=== PATIENT | male | born 1975 | race Two or more races ===

== ENCOUNTER 2016-12-26 13:15 | Emergency (ER) | payer OTHER ==
[~2016-12-26] VITALS: Ht 177.8 cm; Wt 81.6 kg
[~2016-12-26 13:15] MED LIST: BACTRIM DS TAB1 EAC1 ORAL; CLINDAMYCIN HC300 MG ORAL; KEFLEX500 MG ORAL; MUCINEX1200 MG PO; NKM; OCUFEN2.5 ML OP; OCUFLOX5 ML RIGHT EYE; PROMETHAZINE-C118 M1 ORAL; ZITHROMAX250 MG ORAL
[2016-12-26] MEDS ORDERED: Norco 7.5mg/325mg tab ORAL ONE (13:30)
--- NOTE | 2016-12-26 13:30 | Emergency Room Report ---
History of Present Illness General Chief Complaint: Lower Back Pain or Injury Source: EMS (BALA MCLEAN P.A.) Present Illness HPI Patient is a 41-year-old male who denies any medical history presenting for right hip pain which began yesterday after falling onto the corner of a cement block. The patient states that the pain has worsened today and is now described as a 9/10 dull ache localized to the right posterior hip. The patient denies prior injury to this area. The patient denies any numbness or tingling of the extremities. Pt denies N, V, F, chills, dysuria, incontinence, abd pain (BALA MCLEAN P.A.) Allergies: Coded Allergies: No Known Allergies (Unverified , 12/24/14) Patient History Past Medical History: see triage record Pertinent Family History: none Reviewed Nursing Documentation: PMH: Agreed, PSxH: Agreed (BALA MCLEAN.ABalaji) Nursing Documentation-PMH Past Medical History: No Stated History Hx Hypertension: Yes (BALA MCLEAN P.ABalaji) Review of Systems All Other Systems: negative except mentioned in HPI (BALA MCLEAN P.A.) Physical Exam Vital Signs Date Time Temp Pulse Resp B/P Pulse Ox O2 Delivery O2 Flow Rate FiO2 12/26/16 13:15 97.9 83 16 107/65 99 Room Air Sp02 EP Interpretation: reviewed, normal General Appearance: no apparent distress, alert, GCS 15, non-toxic Head: normocephalic, atraumatic Eyes: bilateral eye PERRL, bilateral eye normal inspection ENT: hearing grossly normal, normal pharynx, no angioedema, normal voice Neck: full range of motion, supple/symm/no masses Musculoskeletal: back normal, normal range of motion, no calf tenderness, pelvis stable, tender - TTP over R posterior hip Neurologic: alert, oriented x3, responsive, motor strength/tone normal, sensory intact, speech normal Psychiatric: judgement/insight normal, memory normal, mood/affect normal, no suicidal/homicidal ideation Skin: normal color, no rash, warm/dry, well hydrated Lymphatic: no adenopathy (BALA MCLEAN P.A.) Medical Decision Making PA Attestation Dr. Rodriguez is my supervising physician. Patient management was discussed with my supervising physician (BALA MCLEAN) Diagnostic Impression: Primary Impression: Contusion of hip, right ER Course Patient is a 41-year-old male who denies any medical history presenting for right hip pain Ddx considered include but not limited to sprain/strain, fracture, contusion PE: vitals WNL. NAD Back: No midline tenderness. No step-offs. No obvious deformity. There is tenderness to palpation over the right paraspinous muscles and right posterior hip. No ecchymosis. No edema. X-ray of the lumbar spine and right hip are unremarkable. The patient was given [place] for pain with good relief. The patient will be discharged home with a prescription for Motrin. ER precautions are given (BALA MCLEAN) ER Course Agree with PA-obtained, HPI, PE, Assessment/PLAN and their interpretation of imaging and rhythm strip. (EDGAR RODRIGUEZ M.D.) Other X-Ray Diagnostic Results Other X-Ray Diagnostic Results #1: X-Ray Ordered: L spine Date: Dec 26, 2016 EP Interpretation: Yes Findings: no fractures, no dislocation, no soft tissue swelling Number of Views: 3 PA Scribe Text I am acting as scribe for my supervising physician. My supervising physician's interpretation of the L spine xrays are there are no fractures, dislocations or soft tissue swelling. Other X-Ray Diagnostic Results #2: X-Ray Ordered: R hip Date: Dec 26, 2016 EP Interpretation: Yes Findings: no fractures, no dislocation, no soft tissue swelling Number of Views: 2 PA Scribe Text I am acting as scribe for my supervising physician. My supervising physician's interpretation of the R hip xrays are there are no fractures, dislocations or soft tissue swelling. (BALA MCLEAN) Last Vital Signs Date Time Temp Pulse Resp B/P Pulse Ox O2 Delivery O2 Flow Rate FiO2 12/26/16 13:15 97.9 83 16 107/65 99 Room Air Status: improved (BALA MCLEANABalaji) Disposition: HOME, SELF-CARE Condition: Improved Scripts Ibuprofen* (MOTRIN*) 600 Mg Tablet 600 MG ORAL Q8H Y for For Pain, #30 TAB 0 Refills Prov: BALA MCLEAN 12/26/16 BALA MCLEAN Dec 26, 2016 13:30 EDGAR RODRIGUEZ M.D. Jan 02, 2017 09:57
--- NOTE | 2016-12-26 14:15 | Diagnostic Imaging Report ---
Indications: hip pain Findings: Two views of the right hip were obtained. No acute fracture is demonstrated. Alignment of the hip is within normal limits. Soft tissues are unremarkable. Impression: Negative examination of the hip.
--- NOTE | 2016-12-26 14:30 | Diagnostic Imaging Report ---
Indication: Back pain Comparison: None Findings: 3 views of the lumbar spine were obtained. Mild narrowing of intervertebral disks and associated endplate and facet osteophytes are present. No malalignment identified. No acute fracture definitely seen. Impression: Mild spondylosis. No acute injury appreciated.
[2016-12-26] MEDS ORDERED: IBUPROFEN600 MG ORAL (14:32)
[2016-12-26 15:06] VITALS: BP 120/73
== END 2016-12-26 15:10 | disposition home or self-care (01) ==
LOC: EDBD 13:15 → EMR 13:48
DX: S70.01XA Contusion of right hip, initial encounter (principal); W19.XXXA Unspecified fall, initial encounter; Y92.9 Unspecified place or not applicable; I10 Essential (primary) hypertension
CPT/HCPCS: 72020; 99284

== ENCOUNTER 2017-03-23 20:08 | Emergency (ER) | payer OTHER ==
[~2017-03-23] VITALS: Ht 162.6 cm; Wt 63.5 kg
[~2017-03-23 20:08] MED LIST changes: +IBUPROFEN600 MG ORAL
[2017-03-23] MEDS ORDERED: Norco 10mg/325mg tab ORAL ONE (20:30)
[2017-03-23] MEDS ORDERED: Ketorolac 60mg Inj IM ONE (20:30)
[2017-03-23 21:34] VITALS: BP 136/82
[2017-03-23 22:12] LABS: EOSINOPHILS % (AUTO) 2.8 % (0.0-3.0); LYMPHOCYTES % (AUTO) 44.6 % (20.0-45.0); MEAN CORPUSCULAR HEMOGLOBIN 34.1 PG (27.0-31.0); MEAN CORPUSCULAR HGB CONC 35.6 G/DL (32.0-36.0); MEAN CORPUSCULAR VOLUME 96 FL (80-99); MEAN PLATELET VOLUME 7.2 FL (6.5-10.1); MONOCYTES % (AUTO) 5.3 % (1.0-10.0); NEUTROPHILS % (AUTO) 45.3 % (45.0-75.0); PLATELET COUNT 243 K/UL (150-450); RED BLOOD COUNT 4.48 M/UL (4.70-6.10); RED CELL DISTRIBUTION WIDTH 11.8 % (11.6-14.8)
[2017-03-23] MEDS ORDERED: ROBAXIN-750750 MG PO (22:16)
[2017-03-23] MEDS ORDERED: NORCO 5-325 TA1 EACH ORAL (22:16)
[2017-03-23] MEDS ORDERED: IBUPROFEN600 MG ORAL (22:16)
[2017-03-23 22:29] LABS: ALCOHOL < 10 mg/dL; ANION GAP 14 (5-15); CALCIUM 9.2 mg/dL (8.6-10.2); CARBON DIOXIDE 26 mEQ/L (20-30); CHLORIDE 100 mEQ/L (98-107); CREATININE 0.9 mg/dL (0.7-1.2); GLOMERULAR FILTRATION RATE > 60 mL/min (>60); HEMOLYSIS 98; POTASSIUM 4.3 mEQ/L (3.4-4.9); SODIUM 140 mEQ/L (135-145)
[2017-03-23 22:45] VITALS: BP 124/78
[2017-03-23 22:50] VITALS: BP 124/78
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
== END 2017-03-23 22:50 | disposition home or self-care (01) ==
LOC: EDBD 20:08 → EMR 20:37
DX: S32.019A Unspecified fracture of first lumbar vertebra, initial encounter for closed fracture (principal); S32.029A Unspecified fracture of second lumbar vertebra, initial encounter for closed fracture; S32.039A Unspecified fracture of third lumbar vertebra, initial encounter for closed fracture; M51.36 Other intervertebral disc degeneration, lumbar region; I10 Essential (primary) hypertension; R91.1 Solitary pulmonary nodule; M47.9 Spondylosis, unspecified; R07.9 Chest pain, unspecified; M50.30 Other cervical disc degeneration, unspecified cervical region; S00.03XA Contusion of scalp, initial encounter; V43.52XA Car driver injured in collision with other type car in traffic accident, initial encounter; Y93.9 Activity, unspecified; Y92.410 Unspecified street and highway as the place of occurrence of the external cause
CPT/HCPCS: 36415; 70450; 71250; 72125; 72128; 72131; 80048; 80329; 85025; 96372; 99284

== ENCOUNTER 2019-08-04 08:13 | Emergency (ER) | payer OTHER ==
[~2019-08-04] VITALS: Ht 172.7 cm; Wt 81.6 kg
[~2019-08-04 08:13] MED LIST changes: +NORCO 5-325 TA1 EACH ORAL; +ROBAXIN-750750 MG PO
[2019-08-04] MEDS ORDERED: NKM (08:20)
[2019-08-04] MEDS ORDERED: DiphenhydrAMINE 50mg/ml Inj IVP ONE (08:30)
[2019-08-04] MEDS ORDERED: Morphine Sulfate 4mg/ml Inj (IV USE ONLY) IVP ONE (08:30)
[2019-08-04] MEDS ORDERED: Metoclopramide 10mg/2ml Inj IVP ONE (08:30)
--- NOTE | 2019-08-04 08:30 | Emergency Room Report ---
History of Present Illness General Chief Complaint: Abdominal Pain Source: Patient Present Illness HPI 44-year-old male no past medical history no surgical history presents with right upper quadrant pain that started at 5 AM, patient thinks he ate bad pork, no aggravating alleviating factors, he has had sharp pain moderate severity constant, with acute nausea vomiting no fever no chills no chest pain no shortness of breath, no diarrhea patient presents for evaluation Allergies: Coded Allergies: No Known Allergies (Unverified , 12/24/14) Patient History Past Medical History: see triage record Social History: Reports: smoking Reviewed Nursing Documentation: PMH: Agreed; PSxH: Agreed Nursing Documentation-PMH Past Medical History: No Stated History Hx Hypertension: Yes Review of Systems All Other Systems: negative except mentioned in HPI Physical Exam Vital Signs Date Time Temp Pulse Resp B/P (MAP) Pulse Ox O2 Delivery O2 Flow Rate FiO2 08/04/19 08:15 98.1 62 18 110/67 (81) 99 Room Air Sp02 EP Interpretation: reviewed, normal General Appearance: well appearing, no apparent distress, alert Head: normocephalic, atraumatic Eyes: bilateral eye PERRL, bilateral eye EOMI ENT: uvula midline, moist mucus membranes Neck: supple, thyroid normal, supple/symm/no masses Respiratory: lungs clear, no respiratory distress, no retraction, no accessory muscle use Cardiovascular #1: normal peripheral pulses, regular rate, rhythm, no edema, no gallop, no murmur Gastrointestinal: soft, tenderness - Positive Richardson's, [id number] ultrasound shows a gallstone, tenderness to palpation right upper quadrant Musculoskeletal: normal inspection Neurologic: alert, oriented x3 Psychiatric: mood/affect normal Skin: no rash, warm/dry Medical Decision Making Diagnostic Impression: Primary Impression: Biliary colic ER Course 44-year-old male presents with right upper quadrant pain, positive Richardson's possible cholecystitis versus cholelithiasis versus ascending cholangitis Pain medication given, labs ordered, ultrasound shows a gallstone Formal ultrasound shows no gallbladder wall thickening, no impacted stone, no pericholecystic fluid negative Richardson's Reevaluation at 10:05 AM, pain is well controlled, counseled patient that he is to follow-up with a general surgeon disposition home with return precautions Laboratory Tests Test 08/04/19 08:35 08/04/19 09:55 White Blood Count 8.7 K/UL (4.8-10.8) Red Blood Count 4.41 M/UL (4.70-6.10) L Hemoglobin 14.5 G/DL (14.2-18.0) Hematocrit 41.7 % (42.0-52.0) L Mean Corpuscular Volume 94 FL (80-99) Mean Corpuscular Hemoglobin 32.9 PG (27.0-31.0) H Mean Corpuscular Hemoglobin Concent 34.8 G/DL (32.0-36.0) Red Cell Distribution Width 11.3 % (11.6-14.8) L Platelet Count 281 K/UL (150-450) Mean Platelet Volume 6.8 FL (6.5-10.1) Neutrophils (%) (Auto) 51.9 % (45.0-75.0) Lymphocytes (%) (Auto) 38.9 % (20.0-45.0) Monocytes (%) (Auto) 6.1 % (1.0-10.0) Eosinophils (%) (Auto) 1.9 % (0.0-3.0) Basophils (%) (Auto) 1.2 % (0.0-2.0) Prothrombin Time 9.3 SEC (9.30-11.50) Prothrombin Time INR 0.9 (0.9-1.1) PTT 27 SEC (23-33) Sodium Level 140 MMOL/L (136-145) Potassium Level 3.1 MMOL/L (3.5-5.1) L Chloride Level 103 MMOL/L (98-107) Carbon Dioxide Level 26 MMOL/L (21-32) Anion Gap 11 mmol/L (5-15) Blood Urea Nitrogen 14 mg/dL (7-18) Creatinine 1.0 MG/DL (0.55-1.30) Estimate Glomerular Filtration Rate > 60 mL/min (>60) Glucose Level 152 MG/DL (74-106) H Calcium Level 9.2 MG/DL (8.5-10.1) Total Bilirubin 0.2 MG/DL (0.2-1.0) Aspartate Amino Transferase (AST) 23 U/L (15-37) Alanine Aminotransferase (ALT) 42 U/L (12-78) Alkaline Phosphatase 66 U/L (46-116) Troponin I 0.000 ng/mL (0.000-0.056) Total Protein 7.2 G/DL (6.4-8.2) Albumin 4.1 G/DL (3.4-5.0) Globulin 3.1 g/dL Albumin/Globulin Ratio 1.3 (1.0-2.7) Lipase 216 U/L (73-393) Urine Opiates Screen Pending Urine Barbiturates Screen Pending Phencyclidine (PCP) Screen Pending Urine Amphetamines Screen Pending Urine Benzodiazepines Screen Pending Urine Cocaine Screen Pending Urine Marijuana (THC) Screen Pending EKG Diagnostic Results EKG Time: 08:40 EP Interpretation: sinus bradycardia, rate 55, QTc 432, no acute ST elevations , normal axis Rhythm Strip Diag. Results Rhythm Strip Time: 08:31 EP Interpretation: yes Rate: 61 Rhythm: NSR, no PVC's, no ectopy Chest X-Ray Diagnostic Results Chest X-Ray Diagnostic Results : Chest X-Ray Ordered: Yes # of Views/Limited/Complete: 1 View Indication: Other - preop EP Interpretation: Yes Interpretation: no consolidation, no effusion, no pneumothorax, no acute cardiopulmonary disease Impression: No acute disease Electronically Signed by: Primitivo Monroe MD CT/MRI/US Diagnostic Results CT/MRI/US Diagnostic Results : Impression US NEGATIVE FOR CHOLECYSTITIS Last Vital Signs Date Time Temp Pulse Resp B/P (MAP) Pulse Ox O2 Delivery O2 Flow Rate FiO2 08/04/19 08:15 98.1 62 18 110/67 (81) 99 Room Air Disposition: HOME, SELF-CARE Condition: Stable Scripts Naproxen* (NAPROSYN*) 250 Mg Tablet 250 MG ORAL BID PRN for For Pain, #20 TAB 0 Refills Prov: Primitivo Monroe MD 08/04/19 [facility] Patient Instructions: Biliary Colic, Cholelithiasis, [id number] Additional Instructions: The patient was provided with discharge instructions, notified to follow-up with a primary care doctor and or specialist in the next 24-48 hours, and to return to the ED if they have worsening of their symptoms. Please note that this report is being documented using [employer] technology. This can lead to erroneous entry secondary to incorrect interpretation by the dictating instrument. PLEASE FOLLOW-UP WITH GENERAL SURGEON FOR POSSIBLE REMOVAL OF GALLBLADDER Primitivo Monroe MD Aug 04, 2019 08:30
[2019-08-04 08:47] VITALS: BP 129/77
--- NOTE | 2019-08-04 08:49 | NUR ---
ED Nurse Note: Patient brought to bed 4 by triage nurse ambulated. CO upper abdominal pain - no radistaion states the pain uis accrioss the upper abdomen- reports he ate pork last night. Pain started at 6am - 10-10 intensity - worse on movement better when still but still present. Also vomitted x2 states he dioes not know what the vomit looked like. EKG done and USS ordered.
[2019-08-04 09:08] LABS: ANION GAP 11 mmol/L (5-15); BLOOD UREA NITROGEN 14 mg/dL (7-18); CALCIUM 9.2 MG/DL (8.5-10.1); CARBON DIOXIDE 26 MMOL/L (21-32); CHLORIDE 103 MMOL/L (98-107); POTASSIUM 3.1 MMOL/L (3.5-5.1); SODIUM 140 MMOL/L (136-145)
--- NOTE | 2019-08-04 09:10 | NUR ---
ED Nurse Note: md aware of heartrate 44-50 prior to meds given. pt ok to continue with meds
[2019-08-04 09:12] LABS: ALANINE AMINOTRANSFERASE 42 U/L (12-78); ALBUMIN 4.1 G/DL (3.4-5.0); ALBUMIN/GLOBULIN RATIO 1.3 (1.0-2.7); ALKALINE PHOSPHATASE 66 U/L (46-116); ASPARTATE AMINO TRANSFERASE 23 U/L (15-37); BILIRUBIN,TOTAL 0.2 MG/DL (0.2-1.0)
[2019-08-04 09:18] LABS: BASOPHILS % (AUTO) 1.2 % (0.0-2.0); EOSINOPHILS % (AUTO) 1.9 % (0.0-3.0); HEMATOCRIT 41.7 % (42.0-52.0); HEMOGLOBIN 14.5 G/DL (14.2-18.0); LYMPHOCYTES % (AUTO) 38.9 % (20.0-45.0); MEAN CORPUSCULAR VOLUME 94 FL (80-99); MONOCYTES % (AUTO) 6.1 % (1.0-10.0); NEUTROPHILS % (AUTO) 51.9 % (45.0-75.0); PLATELET COUNT 281 K/UL (150-450); RED BLOOD COUNT 4.41 M/UL (4.70-6.10); RED CELL DISTRIBUTION WIDTH 11.3 % (11.6-14.8); WHITE BLOOD COUNT 8.7 K/UL (4.8-10.8)
[2019-08-04 09:20] VITALS: BP 135/76
[2019-08-04 09:24] LABS: INR 0.9 (0.9-1.1)
[2019-08-04 09:44] VITALS: BP 121/73
--- NOTE | 2019-08-04 09:47 | NUR ---
ED Nurse Note: Medications given as prescribed for symptom management. Patient currently sleeping following USS of abdomen and Xray. Pain score 2 at present. Patient wearing hospital goen. Awaiting urine sample for diocumentation of urine appearance and C&S. IV fluids continuing.
--- NOTE | 2019-08-04 10:04 | NUR ---
ED Nurse Note: Patients girlfrined now in attendance. IV infusion continued.
[2019-08-04 10:05] VITALS: BP 111/68
[2019-08-04] MEDS ORDERED: NAPROXEN250 MG ORAL (10:07)
--- NOTE | 2019-08-04 10:16 | NUR ---
ED Nurse Note: happy for patient to be discharged. aware of heart rate. IV fluid infusion to comlete prior to discharge. Patient states he is happy to be discharged. Copy of blood results given to patient printed by PRIYA Nuñez.
[2019-08-04 11:00] VITALS: BP 115/70
--- NOTE | 2019-08-04 11:02 | Diagnostic Imaging Report ---
Indication: Chest pain Technique: One view of the chest Comparison: none Findings: Lungs and pleural spaces are clear. Heart size is normal Impression: No acute process
--- NOTE | 2019-08-04 11:11 | NUR ---
ER DISCHARGE NOTE: Patient is cleared to be discharged per ERMD, pt is aox4, on room air, with stable vital signs. pt was given dc and prescription instructions, pt was able to verbalize understanding, pt id band and iv site removed without complications. pt is able to ambulate with steady gait. pt took all belongings. Patient will be talen home by his girlfriend. Patient advised to rest for the rest of the day and to avoid alcohol and using machineray due to medications given and side effects of drowsiness. Patient not driving the car zoe - will be dricven by girlfriend. Patient is aware to follow up with general surgery - medications given and discharge paperwork. Pain score 0 at time of discharge.
--- NOTE | 2019-08-04 14:48 | Diagnostic Imaging Report ---
Indication: Abdominal pain Technique: Gomez-scale and duplex images of the upper abdomen were obtained Comparison: none Findings: Gallbladder demonstrates gallstones. No gallbladder wall thickening or pericholecystic fluid. Sonographic Richardson's sign is negative. Common bile duct measures 4 mm in diameter. No intrahepatic biliary ductal dilatation. Liver is enlarged, demonstrates normal echogenicity, no focal abnormality. Portal vein and hepatic veins are patent. Pancreas is incompletely visualized due to overlying bowel gas, visualized portions are unremarkable. Spleen is unremarkable. Left kidney measures 12.3 cm in length. Right kidney measures 11.4 cm length. Both kidneys demonstrate normal echogenicity. There is no hydronephrosis. No focal abnormality . Non-aneurysmal abdominal aorta . Impression: Cholelithiasis. Negative for dilated bile ducts Note incomplete visualization of the pancreas and abdominal aorta
--- NOTE | 2019-08-07 15:29 | Cardiology Report ---
APPROVED REPORT EKG Measurement Heart [id number] Sinus bradycardia Otherwise normal ECG
== END 2019-08-04 11:00 | disposition home or self-care (01) ==
LOC: EMR 08:28 → CANBEDREQ 11:17
DX: K80.50 Calculus of bile duct without cholangitis or cholecystitis without obstruction (principal); F17.200 Nicotine dependence, unspecified, uncomplicated; I10 Essential (primary) hypertension; R07.9 Chest pain, unspecified
CPT/HCPCS: 36415; 71045; 76700; 80053; 82962; 83690; 84484; 85025; 85610; 85730; 86850; 86900; 86901; 93005; 96361; 96374; 96375; 99284; J1200; J2270; J2765; S0028

== ENCOUNTER 2019-10-14 18:55 | Emergency (ER) | payer OTHER ==
[~2019-10-14] VITALS: Ht 172.7 cm; Wt 77.1 kg
[~2019-10-14 18:55] MED LIST changes: +NAPROXEN250 MG ORAL
[2019-10-14 19:10] VITALS: BP 125/80
--- NOTE | 2019-10-14 19:10 | NUR ---
ER Nurse Note: Pt walked in c/o abscess on LT FA for one week. Pt stated was working on his car and noticed a spider bite. Pt prolonged a dr visit; pt stated he noticed white puss, redness, and pain. ER PA at bedside, will continue to shaye.
[2019-10-14] MEDS ORDERED: Lidocaine 1% 10mg/ml/EPI 0.01mg/ml 20ml INJ ONE (19:15)
[2019-10-14] MEDS ORDERED: Tetanus/Diptheria/Pertussis IM ONE (19:15)
[2019-10-14] MEDS ORDERED: Ketorolac 30mg Inj IM ONE (19:15)
[2019-10-14] MEDS ORDERED: Bactrim-DS 1 tab ORAL ONE (19:15)
[2019-10-14] MEDS ORDERED: Cephalexin 500mg cap ORAL ONE (19:15)
--- NOTE | 2019-10-14 19:37 | Emergency Room Report ---
History of Present Illness General Chief Complaint: Skin Rash/Abscess Source: Patient Present Illness HPI 44-year-old male male with no significant past medical history here complaining of an abscess on the left forearm x1 week. 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 He tried to drain the abscess himself when he realized that has been getting more painful however denies fever and chills. Rating the pain 7 out of 10 without radiation. Has full range of motion of the affected area. Denies tingling and numbness. Is not up-to-date with tetanus shot. Denies history of diabetes and other medical condition. denies palpitation, abdominal pain, nausea vomiting and other associated symptoms. Allergies: Coded Allergies: No Known Allergies (Unverified , 12/24/14) Patient History Past Medical History: see triage record Past Surgical History: unable to obtain Pertinent Family History: none Immunizations: other - Tdap given today Reviewed Nursing Documentation: PMH: Agreed; PSxH: Agreed Nursing Documentation-PMH Past Medical History: No History, Except For Hx Hypertension: Yes Review of Systems All Other Systems: negative except mentioned in HPI Physical Exam Vital Signs Date Time Temp Pulse Resp B/P (MAP) Pulse Ox O2 Delivery O2 Flow Rate FiO2 10/14/19 18:58 98.4 76 18 125/80 (95) 97 Room Air Sp02 EP Interpretation: reviewed, normal General Appearance: no apparent distress, alert, GCS 15, non-toxic Head: normocephalic, atraumatic Eyes: bilateral eye normal inspection, bilateral eye PERRL ENT: hearing grossly normal, normal pharynx, no angioedema, normal voice Neck: full range of motion, supple/symm/no masses Respiratory: chest non-tender, lungs clear, normal breath sounds, no wheezing, speaking full sentences Cardiovascular #1: regular rate, rhythm, no edema, no murmur, normal capillary refill Gastrointestinal: non tender, soft Rectal: deferred Genitourinary: no CVA tenderness Musculoskeletal: back normal, digits/nails normal, gait/station normal, normal range of motion, non-tender Neurologic: alert, oriented x3, responsive, motor strength/tone normal, sensory intact, speech normal Psychiatric: judgement/insight normal, memory normal, mood/affect normal, no suicidal/homicidal ideation Skin: other - abscess draining left forearm Lymphatic: normal inspection Procedures Incision and Drainage Incision and Drainage : Consent: Verbal Site: left forearm Blade Size: 11 I & D Procedure: betadine prep Wound Location: upper extremity - left forearm Wound's Depth, Shape: superficial Wound Length (cm): 1 Wound Explored: contaminated Anesthesia: Lidocaine w/ Epi Volume Anesthetic (ccs): 7 Splint Applied?: No Sling Applied?: No Patient Tolerated: Well Complications: None Medical Decision Making PA Attestation All diagnoses and treatment plans were reviewed and discussed with my supervising physician Dr. Johnson Diagnostic Impression: Primary Impression: Abscess of forearm, left ER Course 44-year-old male male with no significant past medical history here complaining of an abscess on the left forearm x1 week. 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 He tried to drain the abscess himself when he realized that has been getting more painful however denies fever and chills. Rating the pain 7 out of 10 without radiation. Has full range of motion of the affected area. Denies tingling and numbness. Is not up-to-date with tetanus shot. Denies history of diabetes and other medical condition. denies palpitation, abdominal pain, nausea vomiting and other associated symptoms. Ddx considered but are not limited to : Cellulitis, osteomyelitis, superficial infection, abscess Vital signs: are WNL, pt. is afebrile H&PE are most consistent with: Abscess left forearm ORDERS: Bactrim DS, Keflex, ibuprofen 800 ED INTERVENTIONS: Tdap, Toradol, Bactrim, Keflex, wound clean and dress, incision and drainage DISCHARGE: At this time pt. is stable for d/c to home. Will provide printed patient care instructions, and any necessary prescriptions. Care plan and follow up instructions have been discussed with the patient prior to discharge. At this time the abscess appears to be draining and a minimal amount of pus in his left with small erythema around the abscess does not look deep and does not require any imaging to rule out osteomyelitis. Patient is afebrile and sitting comfortably. Patient to have a wound check at [facility] or with primary care physician in 2 days. If worsening symptoms return to emergency room sooner. Last Vital Signs Date Time Temp Pulse Resp B/P (MAP) Pulse Ox O2 Delivery O2 Flow Rate FiO2 10/14/19 18:58 98.4 76 18 125/80 (95) 97 Room Air Disposition: HOME, SELF-CARE Condition: Stable Scripts Ibuprofen (Ibu) 800 Mg Tablet 800 MG PO TID, #30 TAB Prov: Trey Chowdhury 10/14/19 Trimethoprim/Sulfamethoxazole 160/800* (BACTRIM DS TABLET*) 1 Each Tablet 1 TAB ORAL TWICE A DAY for 7 Days, #14 TAB Prov: Trey Chowdhury 10/14/19 Cephalexin* (KEFLEX*) 500 Mg Capsule 500 MG ORAL EVERY 6 HOURS for 7 Days, #28 CAP Prov: Trey Chowdhury 10/14/19 Patient Instructions: Abscess Additional Instructions: Take medication as been prescribed, if fever and chills return to emergency room , you need to have a wound check in 2 days he can come back to [facility] or follow-up with primary care physician. If worsening symptoms return to emergency room sooner. Trey Chowdhury Oct 14, 2019 19:37
[2019-10-14] MEDS ORDERED: BACTRIM DS TAB1 EAC1 ORAL (19:39)
[2019-10-14] MEDS ORDERED: IBU800 MG PO (19:39)
[2019-10-14] MEDS ORDERED: CEPHALEXIN500 MG ORAL (19:39)
--- NOTE | 2019-10-14 19:40 | NUR ---
ER Nurse Note: I&D done by ER PA. Dressing applied by precision optics technician. Pt tolerated well.
[2019-10-14 20:10] VITALS: BP 125/80
--- NOTE | 2019-10-14 20:10 | NUR ---
ED Nurse Note: Pt cleared by health care Provider for discharge. DC instructions/prescription was given and explained to pt and verbalized understanding of teachings. All medical deviecs such as ID band removed. Pt is AAO x4, ambulatory and left with all personal belongings.
== END 2019-10-14 20:10 | disposition home or self-care (01) ==
LOC: EMR 19:53
DX: L02.414 Cutaneous abscess of left upper limb (principal); I10 Essential (primary) hypertension; Z23 Encounter for immunization
CPT/HCPCS: 10060; 90471; 90715; 96372; J1885; Z7502; 99283

== ENCOUNTER 2020-08-16 20:04 | Emergency (ER) | payer OTHER ==
[~2020-08-16] VITALS: Ht 172.7 cm; Wt 77.1 kg
[~2020-08-16 20:04] MED LIST changes: +CEPHALEXIN500 MG ORAL; +IBU800 MG PO
[2020-08-16] MEDS ORDERED: BACTRIM DS TAB1 EAC1 ORAL (20:37)
[2020-08-16] MEDS ORDERED: AUGMENTIN 875-1 EAC1 ORAL (20:37)
[2020-08-16 20:45] VITALS: BP 121/80
--- NOTE | 2020-08-17 22:34 | Emergency Room Report ---
History of Present Illness General Chief Complaint: Skin Rash/Abscess Source: Patient Present Illness HPI Patient is a 45-year-old male presents for increased left-sided neck pain. Allergies: Coded Allergies: No Known Allergies (Unverified , 12/24/14) COVID-19 Screening Contact w/high risk pt: No Experienced COVID-19 symptoms?: No COVID-19 Testing performed TILE TRIMMER: No Nursing Documentation-PMH Past Medical History: No Stated History Hx Hypertension: Yes Physical Exam Vital Signs Date Time Temp Pulse Resp B/P (MAP) Pulse Ox O2 Delivery O2 Flow Rate FiO2 08/16/20 20:09 99.7 97 19 119/82 (94) 96 Room Air Medical Decision Making Diagnostic Impression: Primary Impression: Folliculitis Last Vital Signs Date Time Temp Pulse Resp B/P (MAP) Pulse Ox O2 Delivery O2 Flow Rate FiO2 08/16/20 20:45 99.7 72 20 121/80 98 Room Air Disposition: HOME, SELF-CARE Condition: Stable Scripts Trimethoprim/Sulfamethoxazole 160/800* (BACTRIM DS TABLET*) 1 Each Tablet 1 TAB ORAL Q12H, #14 TAB 0 Refills Prov: Quincy Mcclain MD 08/16/20 Amoxicillin/Potassium Clav 875-125* (AUGMENTIN 875-125 TABLET*) 1 Each Tablet 1 TAB ORAL TWICE A DAY, #14 TAB Prov: Quincy Mcclain MD 08/16/20 Referrals: [facility],REFERRING (PCP) Patient Instructions: Folliculitis Additional Instructions: Follow up for recheck in the next 2-3 days. Return if worse. Quincy Mcclain MD Aug 17, 2020 22:34
== END 2020-08-16 20:45 | disposition home or self-care (01) ==
LOC: EMR 20:45
DX: L73.9 Follicular disorder, unspecified (principal); I10 Essential (primary) hypertension
CPT/HCPCS: 99282